=== PATIENT | female | born 2005 ===

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

== ENCOUNTER 2024-01-20 16:06 | Outpatient (REF) | payer BC, SELFPAY | END 2024-01-20 16:07 | disposition home or self-care (01) | LOC: LBN 16:06 | PROVIDERS: PCP Pediatrics; Visit Provider Physician Assistant Medical | DX: J02.9 Acute pharyngitis, unspecified (principal) | CPT/HCPCS: 87070; 87086 ==